=== PATIENT | male | born 1960 | race Caucasian/White ===

== ENCOUNTER → 2019-04-16 08:03 | Outpatient (BNVA) | payer BC, SELFPAY | PROVIDERS: PCP Nurse Practitioner Family; Visit Provider Nurse Practitioner | DX: M19.90 Unspecified osteoarthritis, unspecified site (principal) | CPT/HCPCS: 80053; 85025; 86431 ==

== ENCOUNTER → 2019-04-21 00:01 | Outpatient (BNVA) | payer BC, SELFPAY | PROVIDERS: PCP Nurse Practitioner Family; Visit Provider Nurse Practitioner Family | DX: R73.9 Hyperglycemia, unspecified (principal) | CPT/HCPCS: 83036 ==

== ENCOUNTER → 2019-05-17 12:50 | Outpatient (BNVA) | payer BC, SELFPAY | PROVIDERS: PCP Nurse Practitioner Family; Visit Provider Internal Medicine Rheumatology | DX: M19.90 Unspecified osteoarthritis, unspecified site (principal); Z11.59 Encounter for screening for other viral diseases; Z79.899 Other long term (current) drug therapy; Z11.1 Encounter for screening for respiratory tuberculosis; I10 Essential (primary) hypertension; L98.9 Disorder of the skin and subcutaneous tissue, unspecified | CPT/HCPCS: 36415; 86480; 99204 ==

== ENCOUNTER 2019-05-17 15:17 | Outpatient (CLI) | payer BC, SELFPAY ==
--- NOTE | 2019-05-17 15:23 | XR_ITS ---
WS: [id number] RIGHT HAND: 3 VIEW(S) TECHNIQUE: PA, oblique and lateral. HISTORY: inflammatory arthritis COMPARISON: 08/25/2018 No acute fracture or dislocation. Moderate narrowing of the third metacarpophalangeal joint. Joint space narrowing with osteophytes and hypertrophic bone formation. Suspect there is probably also an erosion or subchondral cyst at the me tacarpal head. No ulnar styloid erosion. Mild widening of the scapholunate interval. XR/XR hand RT min 3V* [id number] IMPRESSION: Moderate degenerative changes at the third metacarpophalangeal joint. Similar t o the prior examination and probably degenerative or posttraumatic.
--- NOTE | 2019-05-17 15:23 | XR_ITS ---
WS: [id number] RIGHT FOOT: 3 VIEW(S) TECHNIQUE: PA, oblique and lateral. HISTORY: inflammatory arthritis COMPARISON: None available. No acute fracture or dislocation. Normal tarsal/metatarsal alignment. Small calcaneal spur. Mild degenerative changes in the midfoot in the form of osteophytes. Hammertoe deformities. XR/XR foot RT min 3V* [id number] IMPRESSION: 1. Mild spurring in the midfoot from osteoarthritis. 2. Small calcaneal spur. 3. Hammertoes.
--- NOTE | 2019-05-17 15:23 | XR_ITS ---
WS: [id number] CHEST 2 VIEWS HISTORY: inflammatory arthritis COMPARISON: 10/09/2014 Lungs: Clear with no abnormality. No pleural effusion or pneumothorax. Cardiac size: Normal. Mediastinum/Aorta: Normal mediastinum. Bones: Normal. XR/XR chest 2V* [id number] IMPRESSION: Normal chest.
--- NOTE | 2019-05-17 15:23 | XR_ITS ---
WS: [id number] LEFT FOOT: 3 VIEW(S) TECHNIQUE: PA, oblique and lateral. HISTORY: inflammatory arthritis COMPARISON: None available. No acute fracture or dislocation. No erosions. No osteopenia. Normal tarsal/metatarsal alignment. No soft tissue abnormality or bone destruction. Small calcaneal spur. XR/XR foot LT min 3V* [id number] IMPRESSION: Small calcaneal spur with no erosions.
--- NOTE | 2019-05-17 15:23 | XR_ITS ---
WS: [id number] LEFT HAND: 3 VIEW(S) TECHNIQUE: PA, oblique and lateral. HISTORY: inflammatory arthritis COMPARISON: None available. No acute fracture or dislocation. Foreign bodies in the soft tissues of the thenar eminence and the proximal phalanx second finger. Small cystic or erosive changes involving the scaphoid. Very slight widening of the scapholunate inte rval. No ulnar styloid erosion. XR/XR hand LT min 3V* [id number] IMPRESSION: 1. Mild erosions at the scaphoid versus subchondral cysts. 2. No metacarpal erosions.
== END 2019-05-17 15:18 | disposition home or self-care (01) ==
LOC: RADWPI 15:22
PROVIDERS: PCP Nurse Practitioner Family; Visit Provider Internal Medicine Rheumatology
DX: M77.32 Calcaneal spur, left foot (principal); M20.41 Other hammer toe(s) (acquired), right foot; M77.31 Calcaneal spur, right foot; M19.071 Primary osteoarthritis, right ankle and foot
CPT/HCPCS: 71046; 73130; 73630; 82306; 84550; 85651; 86140; 86704; 86803; 87340

== ENCOUNTER → 2019-06-03 11:08 | Outpatient (BNVA) | payer BC, SELFPAY | PROVIDERS: PCP Nurse Practitioner Family; Visit Provider Internal Medicine Rheumatology | DX: M06.00 Rheumatoid arthritis without rheumatoid factor, unspecified site (principal); G89.29 Other chronic pain; M54.2 Cervicalgia; M19.90 Unspecified osteoarthritis, unspecified site | CPT/HCPCS: 99214 ==

== ENCOUNTER → 2022-09-24 12:06 | Outpatient (BNVA) | payer MEDICARE, SELFPAY | PROVIDERS: PCP Nurse Practitioner; Visit Provider Nurse Practitioner | DX: R22.40 Localized swelling, mass and lump, unspecified lower limb (principal); Z79.899 Other long term (current) drug therapy; G47.01 Insomnia due to medical condition | CPT/HCPCS: 80053; 84443; 85025 ==

== ENCOUNTER 2022-10-08 08:08 | Outpatient (CLI) | payer MEDICARE, SELFPAY ==
--- NOTE | 2022-10-08 08:30 | US_ITS ---
WS: [id number] ULTRASOUND SOFT TISSUES RIGHT lower leg. HISTORY: R22.40 - Localized swelling, mass and lump, unspecified l... COMPARISON: None available. TECHNIQUE: 2-D and color Doppler imaging is submitted. Ultrasound is directed to the palpable area along the anterior RIGHT lower extremity. No mass identif ied. No change in echogenicity. No soft tissue thickening. No increased vascularity. US/US soft tissue/extremity [id number] IMPRESSION: Normal ultrasound RIGHT lower extremity in the area of interest.
== END 2022-10-08 08:09 | disposition home or self-care (01) ==
LOC: RAD 08:13
PROVIDERS: PCP Nurse Practitioner; Visit Provider Nurse Practitioner
DX: R22.41 Localized swelling, mass and lump, right lower limb (principal); R22.40 Localized swelling, mass and lump, unspecified lower limb
CPT/HCPCS: 76882

== ENCOUNTER → 2022-11-21 12:36 | Outpatient (BNVA) | payer MEDICARE, SELFPAY | PROVIDERS: PCP Nurse Practitioner; Referring Provider Nurse Practitioner; Visit Provider Dermatology | DX: I87.2 Venous insufficiency (chronic) (peripheral) (principal); R21 Rash and other nonspecific skin eruption; I87.8 Other specified disorders of veins | CPT/HCPCS: 99203 ==

== ENCOUNTER → 2023-07-14 09:10 | Outpatient (BNVA) | payer MEDICARE, SELFPAY | PROVIDERS: PCP Nurse Practitioner Family; Visit Provider Nurse Practitioner Family | DX: E55.9 Vitamin D deficiency, unspecified (principal); I10 Essential (primary) hypertension; Z79.899 Other long term (current) drug therapy; Z13.6 Encounter for screening for cardiovascular disorders; E66.9 Obesity, unspecified; H60.90 Unspecified otitis externa, unspecified ear | CPT/HCPCS: 80053; 80061; 81003; 82306; 83036; 84443; 85025 ==

== ENCOUNTER → 2023-11-24 14:29 | Outpatient (BNVA) | payer MEDICARE, SELFPAY | PROVIDERS: PCP Nurse Practitioner Family; Visit Provider Nurse Practitioner Family | DX: L57.0 Actinic keratosis (principal); L82.0 Inflamed seborrheic keratosis; L91.8 Other hypertrophic disorders of the skin | CPT/HCPCS: 17000; 17110; 99212 ==

== ENCOUNTER → 2024-04-29 08:47 | Outpatient (BNVA) | payer MEDICARE, SELFPAY | PROVIDERS: PCP Nurse Practitioner Family; Visit Provider Nurse Practitioner Family | DX: Z79.899 Other long term (current) drug therapy (principal); E66.01 Morbid (severe) obesity due to excess calories; Z68.42 Body mass index [BMI] 45.0-49.9, adult; I10 Essential (primary) hypertension; R68.89 Other general symptoms and signs | CPT/HCPCS: 80053; 80061; 81003; 82306; 83036; 84443; 85025 ==

== ENCOUNTER → 2024-11-16 14:37 | Outpatient (BNVA) | payer MEDICARE, SELFPAY | PROVIDERS: PCP Nurse Practitioner Family; Visit Provider Nurse Practitioner Family | DX: D22.61 Melanocytic nevi of right upper limb, including shoulder (principal); L82.1 Other seborrheic keratosis; L57.8 Other skin changes due to chronic exposure to nonionizing radiation; X32.XXXA Exposure to sunlight, initial encounter; L81.4 Other melanin hyperpigmentation; L57.3 Poikiloderma of Civatte | CPT/HCPCS: 99213 ==